=== PATIENT | male | born 1945 | race Caucasian/White ===

== ENCOUNTER 2019-01-02 14:07 | Emergency (ER) | payer OTHER ==
[~2019-01-02] VITALS: Ht 177.8 cm; Wt 122.5 kg
[2019-01-02] MEDS ORDERED: NEOMY/BACITRA/POLYMYXIN B OINT UD PACKET TP ONE ×3 (14:21→14:37)
--- NOTE | 2019-01-02 14:22 | NUR ---
pt is in room #1b. dr greco evaluated the pt.
[2019-01-02] MEDS ORDERED: TDAP DIPH,PERTUSS,TET VAC/PF 0.5 ML DISP.SYRIN IM ONE ×2 (14:28→14:30)
--- NOTE | 2019-01-02 14:40 | NUR ---
PT WAS D/C'D TO HOME. D/C INSTRUCTIONS GIVEN TO THE PT. NO BLEEDING. PT DENIES PAIN. GAIT IS STABLE.
[2019-01-02 14:41] VITALS: BP 143/89
== END 2019-01-02 14:42 | disposition home or self-care (01) ==
LOC: ER 14:09
DX: S80.12XA Contusion of left lower leg, initial encounter (principal); W22.8XXA Striking against or struck by other objects, initial encounter; Y93.64 Activity, baseball; Y92.89 Other specified places as the place of occurrence of the external cause; Y99.8 Other external cause status
CPT/HCPCS: 73590; 90715; A4217; A4663